=== PATIENT | female | born 1955 | race Caucasian/White ===

== ENCOUNTER 2017-07-27 15:08 | Emergency (ER) | payer SELFPAY ==
[~2017-07-27] VITALS: Ht 152.4 cm; Wt 54.0 kg
[~2017-07-27 15:08] MED LIST: ALBU8I INH; ATOR40TA49 PO; IBUP800T23 PO; PLAV75TA PO
[2017-07-27 15:09] VITALS: BP 166/129; PULSE 131; RESP 16; TEMP 99; O2SAT 91
[2017-07-27 15:32] VITALS: BP 133/60; PULSE 109; RESP 16; O2SAT 94
--- NOTE | 2017-07-27 16:16 | RADRPT ---
EXAM DATE/TIME: 07/27/2017 15:55 [facility] COMPARISON: No previous studies available for comparison. INDICATIONS : Patient tripped over curb and landed on left side. Complains of left sided rib pain. MEDICAL HISTORY : Chronic obstructive pulmonary disease. Nodules on vocal chord. SURGICAL HISTORY : None. ENCOUNTER: Initial ACUITY: 1 day PAIN SCORE: 9/10 LOCATION: Left Ribs FINDINGS: Multiple views of the left ribs were performed. There is a slightly displaced fracture of the postero lateral left third rib. No definite additional rib fractures are demonstrated. There is no significan t pneumothorax. Cardiomediastinal contours are within normal limits. CONCLUSION: 1. Minimally displaced posterolateral left third rib fracture. Kareem Mcdonald MD on July 27, 2017 at 16:10 Board Certified Radiologist. This report was verified electronically.
[2017-07-27] MEDS ORDERED: PERC5TAB12 PO (16:42)
--- NOTE | 2017-07-27 16:43 | PD ---
HPI Chief Complaint: Pain: Acute or Chronic Time Seen by Provider: 15:34 Travel History International Travel<30 days: No Contact w/Intl Traveler<30days: No Traveled to known affect area: No History of Present Illness HPI 61-year-old female patient presents to the ER today, states that she had tripped and fallen on her left side and has been having left rib pains that hurts with movement or deep breaths for the past few days. She denies hitting her head, loss of consciousness, or any other injuries. Pain is currently a 10 out 10. Modifying Factors: None Associated Signs & Symptoms: Left rib pains, injury, fall Risk Factors: None PFSH Past Medical History Asthma: Yes Diminished Hearing: No GERD: Yes ?: Not Menopausal: Yes Past Surgical History Hysterectomy: Yes (1996) Social History Alcohol Use: Yes Tobacco Use: Yes Substance Use: Yes Allergies-Medications (Allergen,Severity, Reaction): Coded Allergies: penicillin G (Unverified Allergy, Severe, UNKNOWN, 07/27/17) Reported Meds & Prescriptions Reported Meds & Active Scripts Active Plavix (Clopidogrel Bisulfate) 75 Mg Tab 75 Mg PO DAILY Lipitor 40 Mg Tab (Atorvastatin Calcium) 40 Mg Tab 40 Mg PO HS Reported Ibuprofen 800 Mg Tab 800 Mg PO BID Ventolin Hfa (Albuterol Sulfate) 8 Gm Aero 2 Puff INH Q4 * SHAKE WELL BEFORE USE * Review of Systems Except as stated in HPI: all other systems reviewed are Neg Physical Exam Narrative GENERAL: Well-developed elderly white female patient currently mild distress. Awake and oriented 3. SKIN: Focused skin assessment warm/dry. HEAD: Atraumatic. Normocephalic. EYES: Pupils equal and round. No scleral icterus. No injection or drainage. ENT: No nasal bleeding or discharge. Mucous membranes pink and moist. NECK: Trachea midline. No JVD. CARDIOVASCULAR: Regular rate and rhythm. No murmur appreciated. CHEST: Tender to palpation of the left posterior mid rib area without deformity or crepitance. No retractions or use of accessory muscles. RESPIRATORY: No accessory muscle use. Clear to auscultation. Breath sounds equal bilaterally. GASTROINTESTINAL: Abdomen soft, non-tender, nondistended. Hepatic and splenic margins not palpable. MUSCULOSKELETAL: No obvious deformities. No clubbing. No cyanosis. No edema. NEUROLOGICAL: Awake and alert. No obvious cranial nerve deficits. Motor grossly within normal limits. Normal speech. PSYCHIATRIC: Appropriate mood and affect; insight and judgment normal. Data Data Last Documented VS Vital Signs Date Time Temp Pulse Resp B/P (MAP) Pulse Ox O2 Delivery O2 Flow Rate FiO2 07/27/17 15:32 109 16 133/60 (84) 94 07/27/17 15:09 99.0 Orders Orders Ribs, Uni (W/Exp Cxr-Min 3vw) (07/27/17 15:34) Acetamin-Hydrocod 325-5 Mg ([place] 5-325 (07/27/17 16:45) MDM Medical Decision Making Medical Screen Exam Complete: Yes Emergency Medical Condition: Yes Medical Record Reviewed: Yes Differential Diagnosis Chest wall contusion versus rib fractures versus pulmonary contusions versus pneumothorax Narrative Course Chest x-ray did not show any signs of pneumothorax but does show a rib fracture on the left side which is the area where she is tender. My plan would be to give her symptomatic relief or pain and follow-up to primary care physician as needed. Return for worsening in symptoms as needed. The plan has been discussed with her and she states understanding. Diagnosis Primary Impression: Left rib fracture Med/Other Pt SpecificInfo: Prescription(s) given Scripts Oxycodone-Acetaminophen (Percocet) 5-325 mg Tab 1 TAB PO Q6H Y for PAIN, #15 TAB 0 Refills Prov: Frances Kaplan MD 07/27/17 Disposition: 01 DISCHARGE HOME Condition: Stable Frances Kaplan MD Jul 27, 2017 16:43
[2017-07-27] MEDS ORDERED: ACETAMINOPHEN/HYDROcodone 325 MG/5 MG TAB PO ONE (16:45)
[2017-07-28] MEDS ORDERED: IBUP200T47 PO (21:15)
[2017-07-28] MEDS ORDERED: PERC5TAB12 PO (22:11)
== END 2017-07-27 17:30 | disposition home or self-care (01) ==
LOC: NEPC 15:08
DX: S22.32XA Fracture of one rib, left side, initial encounter for closed fracture (principal); J45.909 Unspecified asthma, uncomplicated; K21.9 Gastro-esophageal reflux disease without esophagitis; W01.0XXA Fall on same level from slipping, tripping and stumbling without subsequent striking against object, initial encounter; Z72.0 Tobacco use; Z88.0 Allergy status to penicillin; Z79.02 Long term (current) use of antithrombotics/antiplatelets
CPT/HCPCS: 71101; 99283

== ENCOUNTER 2017-07-28 21:07 | Emergency (ER) | payer SELFPAY ==
[~2017-07-28] VITALS: Ht 152.4 cm; Wt 54.1 kg
[~2017-07-28 21:07] MED LIST changes: +PERC5TAB12 PO
[2017-07-28 21:08] VITALS: BP 144/90; PULSE 132; RESP 20; TEMP 99.4; O2SAT 95
[2017-07-28] MEDS ORDERED: IBUP200T47 PO (21:15)
[2017-07-28] MEDS ORDERED: oxyCODONE/ACETAMINOPHEN 5 MG/325 MG TAB PO ONE (21:30)
[2017-07-28] MEDS ORDERED: SODIUM CHLOR 0.9% 1000 ML INJ 1,000 ML IV ONE (21:30)
[2017-07-28 21:32] VITALS: BP 118/62; PULSE 119; RESP 20; TEMP 98.3; O2SAT 95
--- NOTE | 2017-07-28 21:58 | RADRPT ---
EXAM DATE/TIME: 07/28/2017 21:40 [facility] COMPARISON: No previous studies available for comparison. INDICATIONS : Left sided chest pain. Patient fell and fractured rib on left side two days ago. MEDICAL HISTORY : Chronic obstructive pulmonary disease. Nodules on vocal chord. SURGICAL HISTORY : None. ENCOUNTER: [facility] ACUITY: 2 days PAIN SCORE: 10/10 LOCATION: Bilateral chest FINDINGS: A single view of the chest demonstrates the lungs to be symmetrically aerated without evidence of mas s, infiltrate or effusion. The cardiomediastinal contours are unremarkable. Osseous structures are intact. CONCLUSION: 1. No acute findings. Normal basilar atelectasis. Reji Mae MD on July 28, 2017 at 21:55 Board Certified Radiologist. This report was verified electronically.
[2017-07-28 22:10] VITALS: BP 157/74; PULSE 101; RESP 18; O2SAT 99
[2017-07-28] MEDS ORDERED: PERC5TAB12 PO (22:11)
--- NOTE | 2017-07-28 22:12 | PD ---
HPI Chief Complaint: Respiratory Distress Time Seen by Provider: 21:23 Travel History International Travel<30 days: No Contact w/Intl Traveler<30days: No Traveled to known affect area: No History of Present Illness HPI 61-year-old female complains of chest pain. She states she fell while stepping onto a sidewalk curb 2 days prior and ended up fracturing the left ribs. She was diagnosed a rib fractures here and then left the ER before she obtained her Percocet prescription. She states the pain is now severe and is difficult to take a deep breath. She denies interval injury. PFSH Past Medical History Asthma: Yes COPD: Yes Diminished Hearing: No GERD: Yes Menopausal: Yes Past Surgical History Hysterectomy: Yes (1996) Social History Alcohol Use: Yes () Tobacco Use: Yes Substance Use: Yes Allergies-Medications (Allergen,Severity, Reaction): Coded Allergies: penicillin G (Unverified Allergy, Severe, UNKNOWN, 07/28/17) Reported Meds & Prescriptions Reported Meds & Active Scripts Active Percocet (Oxycodone-Acetaminophen) 5-325 mg Tab 1 Tab PO Q6H PRN Reported Ibuprofen 200 Mg Tab 250 Mg PO Q4H PRN Review of Systems Except as stated in HPI: all other systems reviewed are Neg General / Constitutional: No: Fever Cardiovascular: Positive: Chest Pain or Discomfort Respiratory: Positive: Shortness of Breath Physical Exam Narrative GENERAL: Well-nourished well-developed 61-year-old female mild to moderate distress secondary to pain SKIN: Warm and dry. HEAD: Atraumatic. Normocephalic. EYES: Pupils equal and round. No scleral icterus. No injection or drainage. ENT: No nasal bleeding or discharge. Mucous membranes pink and moist. NECK: Trachea midline. No JVD. CARDIOVASCULAR: Tachycardia with a regular rhythm. The rate about 130. RESPIRATORY: Respiratory is about 20. Lung sounds are present bilaterally. There is no flail chest. GASTROINTESTINAL: Abdomen soft, non-tender, nondistended. Hepatic and splenic margins not palpable. MUSCULOSKELETAL: Extremities without clubbing, cyanosis, or edema. No obvious deformities. NEUROLOGICAL: Awake and alert. No obvious cranial nerve deficits. Motor grossly within normal limits. Five out of 5 muscle strength in the arms and legs. Normal speech. PSYCHIATRIC: Appropriate mood and affect; insight and judgment normal. Data Data Last Documented VS Vital Signs Date Time Temp Pulse Resp B/P (MAP) Pulse Ox O2 Delivery O2 Flow Rate FiO2 07/28/17 23:06 07/28/17 22:10 101 18 99 Room Air 07/28/17 21:32 98.3 Tachycardia reviewed. Orders Orders Oxycodone-Acetamin 5-325 Mg (Percocet (07/28/17 21:30) Chest, Single Ap (07/28/17 21:29) Ecg Monitoring (07/28/17 21:29) Iv Access Insert/Monitor (07/28/17 21:29) Oximetry (07/28/17 21:29) Oxygen Administration (07/28/17 21:29) Sodium Chlor 0.9% 1000 Ml Inj (Ns 1000 M (07/28/17 21:30) Resp Incentive Spirometry (07/28/17 ) Ed Discharge Order (07/28/17 22:55) MDM Medical Decision Making Medical Screen Exam Complete: Yes Emergency Medical Condition: Yes Medical Record Reviewed: Yes Differential Diagnosis NSTEMI, unstable angina, coronary vasospasm, PE, PTX, aortic dissection, pericarditis, myocarditis, endocarditis, PNA, esophageal disease, aneurysm, musculoskeletal etiologies, anxiety, cocaine/sympathomimetic abuse Narrative Course Patient received Percocet here. The plain film reveals no pneumothorax or multiple ribs fractured in sequence. Last 24 hours Impressions Chest X-Ray 07/28/172128 Signed Impressions: Service Date/Time: Friday, July 28, 2017 21:40 - CONCLUSION: 1. No acute findings. Normal basilar atelectasis. Reji Mae MD Incentive spirometer Percocet script Diagnosis Primary Impression: Rib contusion Qualified Codes: S20.212D - Contusion of left front wall of thorax, subsequent encounter Med/Other Pt SpecificInfo: Prescription(s) given Scripts Oxycodone-Acetaminophen (Percocet) 5-325 mg Tab 1 TAB PO Q6H Y for PAIN, #15 TAB 0 Refills Prov: Abdoulaye Arcos MD 07/28/17 Disposition: 01 DISCHARGE HOME Condition: Stable Abdoulaye Arcos MD Jul 28, 2017 22:12
== END 2017-07-28 23:07 | disposition home or self-care (01) ==
LOC: NEPE 21:07
DX: S20.212D Contusion of left front wall of thorax, subsequent encounter (principal); J44.9 Chronic obstructive pulmonary disease, unspecified; W10.1XXD Fall (on)(from) sidewalk curb, subsequent encounter; Z72.0 Tobacco use
CPT/HCPCS: 71010; 94150; 99283; J7030

== ENCOUNTER 2017-10-13 17:35 | Emergency (ER) | payer SELFPAY ==
[~2017-10-13] VITALS: Ht 152.4 cm; Wt 52.5 kg
[~2017-10-13 17:35] MED LIST changes: -ALBU8I INH; -ATOR40TA49 PO; +IBUP200T47 PO; -IBUP800T23 PO; -PLAV75TA PO
[2017-10-13 17:46] VITALS: BP 128/66; PULSE 110; RESP 20; TEMP 98.3; O2SAT 97
== END 2017-10-13 19:25 | disposition left against medical advice (07) ==
LOC: NED 17:35
DX: M79.89 Other specified soft tissue disorders (principal); Z53.21 Procedure and treatment not carried out due to patient leaving prior to being seen by health care provider
CPT/HCPCS: 99281

== ENCOUNTER 2017-12-01 11:26 | Observation (INO) | payer SELFPAY ==
[2017-12-01] VITALS (9 sets, daily range): BP systolic 108–160; BP diastolic 65–99; PULSE 74–117; RESP 15–20; TEMP 97.1–98.3; O2SAT 96–99
[~2017-12-01] VITALS: Ht 152.4 cm; Wt 55.0 kg
--- NOTE | 2017-12-01 11:47 | PD ---
HPI Chief Complaint: Neuro Symptoms/ Deficits Time Seen by Provider: 11:32 Travel History International Travel<30 days: No Contact w/Intl Traveler<30days: No Traveled to known affect area: No History of Present Illness HPI This is a 62-year-old female with history of tobacco use, alcohol use, COPD, hyperlipidemia who presents for evaluation. She reports over the past few days she has had intermittent numbness in her right hand and fuzzy vision. She reports that the numbness in her right hand comes and goes and typically lasts for 5 minutes at a time. No obvious aggravating or relieving factors. She reports that the fuzzy vision has been constant and seems to be a little worse in her left eye. She denies any weakness, headache, chest pain or shortness of breath, dizziness or lightheadedness, nausea or vomiting, fevers or chills, neck pain. 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 She reports that she occasionally takes aspirin on a random basis. She occasionally uses albuterol for her COPD. She is not on any other medications and has no primary care physician. [facility], [facility] Past Medical History Asthma: Yes COPD: Yes Diminished Hearing: No GERD: Yes ?: Not Menopausal: Yes Past Surgical History Hysterectomy: Yes (1996) Social History Alcohol Use: Yes () Tobacco Use: Yes Substance Use: Yes Allergies-Medications (Allergen,Severity, Reaction): Coded Allergies: penicillin G (Verified Allergy, Intermediate, RASH, 12/01/17) Reported Meds & Prescriptions Reported Meds & Active Scripts Active Review of Systems Except as stated in HPI: all other systems reviewed are Neg Physical Exam Narrative GENERAL: Well-developed well-nourished female no acute distress. Tachycardic. SKIN: Warm and dry. HEAD: Atraumatic. Normocephalic. EYES: Pupils equal and round. No scleral icterus. No injection or drainage. ENT: No nasal bleeding or discharge. Mucous membranes pink and moist. NECK: Trachea midline. No JVD. CARDIOVASCULAR: Regular rate and rhythm. No murmur appreciated. RESPIRATORY: No accessory muscle use. Clear to auscultation. Breath sounds equal bilaterally. GASTROINTESTINAL: Abdomen soft, non-tender, nondistended. Hepatic and splenic margins not palpable. MUSCULOSKELETAL: No obvious deformities. No clubbing. No cyanosis. No edema. NEUROLOGICAL: Awake and alert. No obvious cranial nerve deficits. Motor grossly within normal limits. Normal speech. Normal matcher operator strength bilaterally. 5 out of 5 muscle strength in the extremities. Normal finger to nose, rapid alternating movements, normal heel to coello. PSYCHIATRIC: Appropriate mood and affect; insight and judgment normal. Data Data Last Documented VS Vital Signs Date Time Temp Pulse Resp B/P (MAP) Pulse Ox O2 Delivery O2 Flow Rate FiO2 12/01/17 11:36 98.2 107 18 140/99 (113) 97 Room Air 12/01/17 11:36 2.00 Orders Orders Electrocardiogram (12/01/17 11:43) Prothrombin Time / Inr (Pt) (12/01/17 11:43) Act Partial Throm Time (Ptt) (12/01/17 11:43) Complete Blood Count With Diff (12/01/17 11:43) Basic Metabolic Panel (Bmp) (12/01/17 11:43) Creatine Kinase (Cpk) (12/01/17 11:43) Drug Screen, Random Urine (12/01/17 11:43) Troponin I (12/01/17 11:43) Ct Brain W/O Iv Contrast(Rout) (12/01/17 11:43) Iv Access Insert/Monitor (12/01/17 11:43) Blood Glucose (12/01/17 11:43) Ct Cerv Spine W/O Contrast (12/01/17 ) Magnesium (Mg) (12/01/17 11:43) Admit Order (Ed Use Only) (12/01/17 13:32) Labs Laboratory Tests Test 12/01/17 11:45 White Blood Count 16.1 TH/MM3 Red Blood Count 5.19 MIL/MM3 Hemoglobin 16.7 GM/DL Hematocrit 47.7 % Mean Corpuscular Volume 92.0 FL Mean Corpuscular Hemoglobin 32.2 PG Mean Corpuscular Hemoglobin Concent 35.0 % Red Cell Distribution Width 15.2 % Platelet Count 354 TH/MM3 Mean Platelet Volume 8.0 FL Neutrophils (%) (Auto) 63.8 % Lymphocytes (%) (Auto) 29.9 % Monocytes (%) (Auto) 5.2 % Eosinophils (%) (Auto) 0.3 % Basophils (%) (Auto) 0.8 % Neutrophils # (Auto) 10.3 TH/MM3 Lymphocytes # (Auto) 4.8 TH/MM3 Monocytes # (Auto) 0.8 TH/MM3 Eosinophils # (Auto) 0.1 TH/MM3 Basophils # (Auto) 0.1 TH/MM3 CBC Comment DIFF FINAL Differential Comment Prothrombin Time 9.7 SEC Prothromb Time International Ratio 1.0 RATIO Activated Partial Thromboplast Time 26.9 SEC Urine Opiates Screen NEG Urine Barbiturates Screen NEG Urine Amphetamines Screen NEG Urine Benzodiazepines Screen NEG Urine Cocaine Screen NEG Urine Cannabinoids Screen NEG MDM Medical Decision Making Medical Screen Exam Complete: Yes Emergency Medical Condition: Yes Medical Record Reviewed: Yes Differential Diagnosis Cervical radiculopathy, thoracic outlet syndrome, herniated mucous pulposis, TIA , CVA, intracranial mass Narrative Course The patient was placed on ECG monitoring pulse oximetry. A 12-lead EKG was obtained revealing sinus rhythm. Lab work, CT imaging the brain and cervical spine will be obtained. CT the brain reveals CONCLUSION: 1. No acute hemorrhage or mass effect. 2. Focal 9 mm area of decreased attenuation in white matter of the right frontal lobe of unclear significance. This may represent an area of subacute or remote infarction. A mass lesion is less likely. This could be further evaluated with MRI imaging with without contrast. Patient's visual acuity in each eye is 20/40 while wearing her usual glasses. CBC reveals some degree of hemoconcentration with a WBC count of 16.1 and hemoglobin of 16.7. Drug screen is negative. At this point in time the plan is to admit the patient for observation. Discussed with Dr. Villafuerte who is agreeable. Diagnosis Primary Impression: Numbness of right hand Additional Impression: Blurred vision Admitting Information Admitting Physician Requests: Observation Mitch Caceres Dec 01, 2017 11:47
[2017-12-01 12:24] LABS: AUTOMATED NEUTROPHIL # 10.3 TH/MM3 (1.8-7.7); BASOPHIL # 0.1 TH/MM3 (0-0.2); BASOPHIL % 0.8 % (0.0-2.0); EOSINOPHIL # 0.1 TH/MM3 (0-0.4); EOSINOPHIL % 0.3 % (0.0-4.0); HEMATOCRIT 47.7 % (35.0-46.0); HEMOGLOBIN 16.7 GM/DL (11.6-15.3); LYMPH % 29.9 % (9.0-44.0); LYMPHOCYTE # 4.8 TH/MM3 (1.0-4.8); MEAN CORPUSCULAR HEMOGLOBIN 32.2 PG (27.0-34.0); MONO % 5.2 % (0.0-8.0); MONOCYTE # 0.8 TH/MM3 (0-0.9); NEUT % 63.8 % (16.0-70.0); PLATELET COUNT 354 TH/MM3 (150-450); RED BLOOD COUNT 5.19 MIL/MM3 (4.00-5.30); RED CELL DISTRIBUTION WIDTH 15.2 % (11.6-17.2); WHITE BLOOD COUNT 16.1 TH/MM3 (4.0-11.0)
[2017-12-01 12:44] LABS: PROTHROMBIN TIME - PATIENT 9.7 SEC (9.8-11.6)
--- NOTE | 2017-12-01 13:10 | RADRPT ---
EXAM DATE/TIME: 12/01/2017 12:56 [facility] COMPARISON: No previous studies available for comparison. INDICATIONS : Right hand numbness. RADIATION DOSE: 56.34 CTDIvol (mGy) MEDICAL HISTORY : SURGICAL HISTORY : Hysterectomy. throat ENCOUNTER: Initial ACUITY: 1 day PAIN SCALE: 4/10 LOCATION: cranial TECHNIQUE: Multiple contiguous axial images were obtained of the head. Using automated exposure control and adj ustment of the mA and/or kV according to patient size, radiation dose was kept as low as reasonably a chievable to obtain optimal diagnostic quality images. DICOM format image data is available electro nically for review and comparison. FINDINGS: CEREBRUM: There is mild to moderate atrophic change with sulcal and ventricular prominence. There is a round 9 mm area of decreased attenuation in white matter of the right frontal lobe best seen on image #13. No evidence of midline shift, mass lesion, hemorrhage or acute infarction. No extra-axial fluid collec tions are seen. POSTERIOR FOSSA: The cerebellum and brainstem are intact. The 4th ventricle is midline. The cerebellopontine angle i s unremarkable. EXTRACRANIAL: The visualized portion of the orbits is intact. SKULL: The calvaria is intact. No evidence of skull fracture. CONCLUSION: 1. No acute hemorrhage or mass effect. 2. Focal 9 mm area of decreased attenuation in white matter of the right frontal lobe of unclear sign ificance. This may represent an area of subacute or remote infarction. A mass lesion is less likely. This could be further evaluated with MRI imaging with without contrast. Lakhwinder Mitchell MD on December 01, 2017 at 13:06 Board Certified Radiologist. This report was verified electronically.
--- NOTE | 2017-12-01 13:26 | RADRPT ---
EXAM DATE/TIME: 12/01/2017 12:56 [facility] COMPARISON: No previous studies available for comparison. INDICATIONS : Right arm numbness. RADIATION DOSE: 13.91 CTDIvol (mGy) MEDICAL HISTORY : None SURGICAL HISTORY : Hysterectomy. throat. ENCOUNTER: Initial ACUITY: 1 day PAIN SCALE: 4/10 LOCATION: Right neck TECHNIQUE: Volumetric scanning of the cervical spine was performed. Multiplanar reconstructions in the sagittal, coronal and oblique axial planes were performed. Using automated exposure control and adjustment o f the mA and/or kV according to patient size, radiation dose was kept as low as reasonably achievable to obtain optimal diagnostic quality images. DICOM format image data is available electronically f or review and comparison. FINDINGS: Sagittal and coronal reconstructions show multilevel degenerative disease with loss of disc height fr om C4-5 inferiorly. Minimal grade 1 anterolisthesis of C2 on 3 and C3 on 4 probably due to facet dege neration. Vertebral body heights are maintained without fracture. Partially calcified disc at C5-6 en croaches on the spinal canal and may result in some degree of spinal stenosis. Spinal canal appears t o be adequate at all remaining levels, however. C2-C3: Right-sided facet hypertrophy. Spinal canal and neural foramina remain adequate C3-C4: Bilateral facet hypertrophy. Spinal canal and neural foramina are adequate C4-C5: Uncovertebral ridging most prominent left posterolateral encroaches on the left neural foramina and m ay compromise the left C5 nerve root. Spinal canal and right neural foramina are adequate C5-C6: Uncovertebral ridging with a calcified disc measuring 3 mm in depth encroaches on the intrapleural sp gladys. No obvious cord compromise. Both neural foramina are adequate C6-C7: Uncovertebral ridging. Spinal canal and neural foramina are patent C7-T1: The bony spinal canal is normal in size. No evidence of disc bulge or herniation. The neural forami na are bilaterally patent. CONCLUSION: 1. No fracture. Minimal grade 1 anterolisthesis C2 on 3 and C3 on 4 probably due to facet degeneratio n. 2. Multilevel degenerative disc disease with loss of disc height most prominent from C4-5 inferiorly. Partially calcified 3 mm disc at C5-6 encroaches on the intervertebral space and results in mild spi nal stenosis but no cord compromise. Spinal canal is otherwise throughout. 3. Some encroachment on the left neural foramen at C4-5 due to mild vertebral ridging. Despite multil evel facet hypertrophy, neural foramina are adequate at all remaining levels. Brandon Llanos MD on December 01, 2017 at 13:12 Board Certified Radiologist. This report was verified electronically.
[2017-12-01] MEDS ORDERED: GADODIAMIDE PF 287 MG/ML 5 ML VIAL (for RAD MRI) IVCONTRAST ONE (13:35)
--- NOTE | 2017-12-01 14:12 | HHI.HP ---
HPI Service Family Medicine Primary Care Physician No Primary Care Physician Admission Diagnosis Blurred vision, right hand numbness Diagnoses: International Travel<30 Days: No Contact w/Intl Traveler<30days: No Known Affected Area: No History of Present Illness 62 y/o F, presents with right hand numbness and vision change today. She states she hasn't been feeling good for the last couple days but the numbness started this morning. She had felt out of sorts like she was coming down with a cold or something. She felt more fatigued and congested. Right when she woke up this morning she noticed her vision didn't look right. She tried to have a cup of coffee to see if it would get better, but then she realized she had to go the ED. Since she got to the ED she thinks her vision has improved a little bit. The right hand numbness has concerned her more than the vision, this also was noticeable right when she woke up. Her right hand numbness has been coming and going over the day. She denies any hx of carpal tunnel. Pt denies any hx of stroke. She is walking normally but feels "off balance". She has been using her arthritis cane to walk today. Denies any arm or hand weakness. She has had a headache over the last few days, 4-5/10 pain. She took 3 aspirin for the headache along with caffeine and that helped. She does not have a headache right now. She does not take her BP regularly. Review of Systems Constitutional: DENIES: Fever, Weight loss Endocrine: COMPLAINS OF: Heat/cold intolerance (menopausal), DENIES: Polyuria Respiratory: COMPLAINS OF: Cough, Sputum production (normal, smoker), DENIES: Wheezing Cardiovascular: DENIES: Syncope, Lower Extremity Edema Gastrointestinal: COMPLAINS OF: Diarrhea (x 3-4 days, from icelandic takeout?), DENIES: Constipation, Nausea, Vomiting Genitourinary: DENIES: Urinary frequency Integumentary: DENIES: Rash Neurologic: DENIES: Seizures Psychiatric: COMPLAINS OF: Confusion (gradual age "forgetfulness"), DENIES: Mood changes, Depression Past Family Social History Past Medical History COPD Asthma Arthritis in R knee laryngeal polyps Does not have a PCP currently, has not seen one for a long time Past Surgical History hysterectomy, partial foot surgeries vocal cord surgery x 2 for polyps Allergies: Coded Allergies: penicillin G (Verified Allergy, Intermediate, RASH, 12/01/17) Family History Family hx of DM Social History live here in [facility] with roommates, friends smoke: 1ppd x lifetime drink: 2 beers every 2 days, never had a drinking problem drugs: no drugs Physical Exam Vital Signs Vital Signs Date Time Temp Pulse Resp B/P (MAP) Pulse Ox O2 Delivery O2 Flow Rate FiO2 12/01/17 13:35 98.2 90 15 137/65 (89) 99 Room Air 12/01/17 11:36 98.2 107 18 140/99 (113) 97 Room Air 12/01/17 11:36 107 18 93 Nasal Cannula 2.00 12/01/17 11:28 97.1 117 15 160/72 (101) 98 Physical Exam GENERAL: This is a well-nourished, well-developed patient, in no apparent distress. SKIN: No rashes, ecchymoses or lesions. Cool and dry. HEAD: Atraumatic. Normocephalic. No temporal or scalp tenderness. EYES: Pupils equal round and reactive. Extraocular motions intact. No scleral icterus. Eyes are injected and erythematous, apparently this is normal for patient. wearing glasses vision is 20/40 equal bilaterally ENT: Nose without bleeding, purulent drainage or septal hematoma. Throat without erythema, tonsillar hypertrophy or exudate. Uvula midline. Airway patent. NECK: Trachea midline. No JVD or lymphadenopathy. Supple, nontender, no meningeal signs. CARDIOVASCULAR: Regular rate and rhythm without murmurs, gallops, or rubs. RESPIRATORY: Clear to auscultation. Breath sounds equal bilaterally. Mild wheezing in middle and lower lobes. No coughing. GASTROINTESTINAL: Abdomen soft, non-tender, nondistended. No hepato-splenomegaly , or palpable masses. No guarding. MUSCULOSKELETAL: Extremities without clubbing, cyanosis, or edema. No joint tenderness, effusion, or edema noted. No calf tenderness. Negative Homans sign bilaterally. NEUROLOGICAL: Awake and alert. Cranial nerves II through XII intact. Motor and sensory grossly within normal limits. Five out of 5 muscle strength in all muscle groups. Normal speech. Laboratory Laboratory Tests Test 12/01/17 11:45 12/01/17 13:40 White Blood Count 16.1 Red Blood Count 5.19 Hemoglobin 16.7 Hematocrit 47.7 Mean Corpuscular Volume 92.0 Mean Corpuscular Hemoglobin 32.2 Mean Corpuscular Hemoglobin Concent 35.0 Red Cell Distribution Width 15.2 Platelet Count 354 Mean Platelet Volume 8.0 Neutrophils (%) (Auto) 63.8 Lymphocytes (%) (Auto) 29.9 Monocytes (%) (Auto) 5.2 Eosinophils (%) (Auto) 0.3 Basophils (%) (Auto) 0.8 Neutrophils # (Auto) 10.3 Lymphocytes # (Auto) 4.8 Monocytes # (Auto) 0.8 Eosinophils # (Auto) 0.1 Basophils # (Auto) 0.1 CBC Comment DIFF FINAL Differential Comment Prothrombin Time 9.7 Prothromb Time International Ratio 1.0 Activated Partial Thromboplast Time 26.9 Urine Opiates Screen NEG Urine Barbiturates Screen NEG Urine Amphetamines Screen NEG Urine Benzodiazepines Screen NEG Urine Cocaine Screen NEG Urine Cannabinoids Screen NEG Result Diagram: 12/01/17 1145 Septic Shock Reassessment Septic shock perfusion: reassessment completed Caprini VTE Risk Assessment Caprini VTE Risk Assessment: No/Low Risk (score <= 1) Caprini Risk Assessment Model Point Value = 1 Point Value = 2 Point Value = 3 Point Value = 5 Age 41-60 Minor surgery BMI > 25 kg/m2 Swollen legs Varicose veins or History of unexplained or recurrent spontaneous Oral contraceptives or hormone replacement Sepsis (< 1 month) Serious lung disease, including pneumonia (< 1 month) Abnormal pulmonary function Acute myocardial infarction Congestive heart failure (< 1 month) History of inflammatory bowel disease Medical patient at bed rest Age 61-74 Arthroscopic surgery Major open surgery (> 45 min) Laparoscopic surgery (> 45 min) Malignancy Confined to bed (> 72 hours) Immobilizing plaster cast Central venous access Age >= 75 History of VTE Family history of VTE Factor V Leiden Prothrombin [id number] Lupus anticoagulant Anticardiolipin antibodies Elevated serum homocysteine Heparin-induced thrombocytopenia Other congenital or acquired thrombophilia Stroke (< 1 month) Elective arthroplasty Hip, pelvis, or leg fracture Acute spinal cord injury (< 1 month) Prophylaxis Regimen Total Risk Factor Score Risk Level Prophylaxis Regimen 0-1 Low Early ambulation 2 Moderate Order ONE of the following: *Sequential Compression Device (SCD) *Heparin 5000 units SQ BID 3-4 Higher Order ONE of the following medications: *Heparin 5000 units SQ TID *Enoxaparin/Lovenox 40 mg SQ daily (WT < 150 kg, CrCl > 30 mL/min) *Enoxaparin/Lovenox 30 mg SQ daily (WT < 150 kg, CrCl > 10-29 mL/min) *Enoxaparin/Lovenox 30 mg SQ BID (WT < 150 kg, CrCl > 30 mL/min) AND/OR *Sequential Compression Device (SCD) 5 or more Highest Order ONE of the following medications: *Heparin 5000 units SQ TID (Preferred with Epidurals) *Enoxaparin/Lovenox 40 mg SQ daily (WT < 150 kg, CrCl > 30 mL/min) *Enoxaparin/Lovenox 30 mg SQ daily (WT < 150 kg, CrCl > 10-29 mL/min) *Enoxaparin/Lovenox 30 mg SQ BID (WT < 150 kg, CrCl > 30 mL/min) AND *Sequential Compression Device (SCD) Assessment and Plan Assessment and Plan 62-year-old female presents with symptoms consistent with TIA since awakening this morning. Her symptoms have been alleviating of the day. Code Status Full code Problem List: (1) Blurry vision, bilateral ICD Codes: H53.8 - Other visual disturbances Status: Acute Plan: Acute bilateral vision loss, improving over day BP normal, carotid normal History of headache over last few days, no headache now, possible migraine aura Less Likely temporal arteritis - no tenderness to palpation, no current headache , f/u ESR, CRP R/O TIA as below (2) Numbness of right hand ICD Codes: R20.0 - Anesthesia of skin Status: Acute Plan: Paroxysmal over day today no hx of carpal tunnel, 1st episode Nerve compression radiculopathy versus TIA Follow-up as outpatient with cervical MRI Cervical spine CT: Degenerative disc disease at C5-C6, encroaching on intervertebral space, mild spinal stenosis but no cord compromise. - Imaging discussed with radiology, it is possible that stenosis is causing nerve impingement and radiculopathy (3) TIA (transient ischemic attack) ICD Codes: G45.9 - Transient cerebral ischemic attack, unspecified Status: Acute Plan: paroxysmal right arm numbness since AM, blurry vision since AM, both improving Transient symptoms consistent with TIA Bedrest Head of bed flat for 12 hours Neurochecks every 4 while patient is awake Will allow for permissive hypertension of 200/100 Heart healthy diet Normal saline at 75 mL/h Initial glucose normal Start aspirin 325 daily Start Lovenox 40 daily Start atorvastatin 40 at bedtime Follow-up ACS workup Follow-up lipid profile and hemoglobin A1c Follow-up LFTs Follow-up echo Consult PT, OT Consult neurology Head CT: No hemorrhage. Focal 9 mm area of decreased attenuation in white matter of right frontal lobe, unclear significance. May be subacute or remote infarction. Mass lesion is less likely. Further evaluate with MRI Brain MRI: Chronic white matter ischemic changes. No mass or abnormal enhancement Neck MRA: 50% stenosis of left subclavian. Right carotid system is patent. Left vertebral may be occluded proximally (similar to CT neck in 2015) Head MRA: Anatomical variant of the [place]. Right vertebral dominant. No aneurysms. (4) SIRS (systemic inflammatory response syndrome) ICD Codes: R65.10 - Systemic inflammatory response syndrome (SIRS) of non- infectious origin without acute organ dysfunction Status: Acute Plan: Patient met SIRS criteria on admission with tachycardia and leukocytosis Heart rate 117, WBC 16 Follow-up UA, urine culture Follow-up vital signs Chest x-ray: Minimal atelectasis in right base. Lungs otherwise clear. (5) COPD (chronic obstructive pulmonary disease) ICD Codes: J44.9 - Chronic obstructive pulmonary disease, unspecified Status: Chronic Plan: Albuterol as needed (6) FEN/PPX Status: Acute Plan: Fluids: Normal saline at 75 mL/h Electrolytes: BMP normal, follow-up in a.m. Nutrition: Heart healthy diet GI prophylaxis: Not indicated DVT prophylaxis: Lovenox 40 daily Lilian Tafoya MD R2 Dec 01, 2017 14:12
[2017-12-01 14:27] LABS: TROPONIN I LESS THAN 0.02 NG/ML (0.02-0.05)
[2017-12-01 14:28] LABS: BLOOD UREA NITROGEN 7 MG/DL (7-18); CALCIUM 8.8 MG/DL (8.5-10.1); CHLORIDE 108 MEQ/L (98-107); CREATININE 0.72 MG/DL (0.50-1.00); GLOMERULAR FILTRATION RATE 82 ML/MIN (>89); GLUCOSE,RANDOM 75 MG/DL (74-106); MAGNESIUM 2.4 MG/DL (1.5-2.5); SODIUM (NA) 141 MEQ/L (136-145)
[2017-12-01] MEDS ORDERED: SENNOSIDES 8.6 MG TAB PO PRN (14:45)
[2017-12-01] MEDS ORDERED: ONDANSETRON HCL 4 MG/2 ML VIAL IVP PRN (14:45)
[2017-12-01] MEDS ORDERED: MAGNESIUM HYDROXIDE SUSP 30 ML CUP PO PRN (14:45)
[2017-12-01] MEDS ORDERED: ACETAMINOPHEN 325 MG TAB PO PRN (14:45)
[2017-12-01] MEDS ORDERED: SODIUM CHLORIDE 0.9% FLUSH 10 ML FLUSH IV FLUSH PRN (14:45)
[2017-12-01] MEDS ORDERED: TEMAZEPAM 15 MG CAP PO PRN (14:45)
[2017-12-01] MEDS ORDERED: BISACODYL 10 MG SUPP RECTAL PRN (14:45)
[2017-12-01] MEDS ORDERED: LACTULOSE SYRUP 20 GM/30 ML CUP PO PRN (14:45)
[2017-12-01] MEDS ORDERED: NALOXONE HCL 0.4 MG/ML AMP IV PUSH PRN (14:45)
[2017-12-01] MEDS ORDERED: RESP: ALBUTEROL 2.5 MG/3 ML NEB (PRN) INH (15:00)
[2017-12-01] MEDS ORDERED: RESP: IPRATROPIUM 0.5 MG/2.5 ML NEB INH PRN (15:00)
[2017-12-01] MEDS: SODIUM CHLOR 0.45% 1000 ML INJ 1,000 ML IV SCH (15:33)
[2017-12-01] MEDS: ASPIRIN 325 MG TAB PO SCH (15:34)
[2017-12-01] MEDS: ENOXAPARIN SODIUM 40 MG/0.4 ML SYRINGE SQ SCH (15:34)
--- NOTE | 2017-12-01 16:19 | RADRPT ---
EXAM DATE/TIME: 12/01/2017 15:11 [facility] COMPARISON: No previous studies available for comparison. INDICATIONS : Cough. Congestion. MEDICAL HISTORY : None. SURGICAL HISTORY : None. ENCOUNTER: Initial ACUITY: 2 days PAIN SCORE: 6/10 LOCATION: Bilateral chest FINDINGS: PA and lateral views of the chest demonstrate the lungs to be symmetrically aerated without evidence of mass, infiltrate or effusion. Minimal linear atelectatic changes in the right base. The cardiomed iastinal contours are unremarkable. Osseous structures are intact. CONCLUSION: Minimal linear atelectatic changes in the right base. Lungs are otherwise clear. Brandon Llanos MD on December 01, 2017 at 16:17 Board Certified Radiologist. This report was verified electronically.
--- NOTE | 2017-12-01 16:34 | RADRPT ---
EXAM DATE/TIME: 12/01/2017 15:43 [facility] COMPARISON: No previous studies available for comparison. INDICATIONS : Right sided weakness. CONTRAST: 14 cc Omniscan (gadodiamide) IV MEDICAL HISTORY : None. SURGICAL HISTORY : Hysterectomy. Vocal cord, foot surgeries. ENCOUNTER: Initial ACUITY: 1 day PAIN SCORE: 0/10 LOCATION: cranial TECHNIQUE: Multiplanar, multisequence MRI of the brain was performed both prior to and following the administrat ion of paramagnetic contrast. FINDINGS: There are mild changes of chronic ischemic demyelinization in the periventricular white matter. No re cent infarct. Lesion in the right frontal lobe seen on CT likely represents chronic white matter osp[place]. No abnormal enhancing lesions postcontrast. No hydrocephalus. No abnormal extra-axial fluid collections. CONCLUSION: 1. Chronic white matter ischemic changes. No recent infarct. No mass or abnormal enhancement. Reji Mae MD on December 01, 2017 at 16:23 Board Certified Radiologist. This report was verified electronically.
--- NOTE | 2017-12-01 16:38 | RADRPT ---
EXAM DATE/TIME: 12/01/2017 15:43 [facility] COMPARISON: MRA BRAIN W/O CONTRAST, March 19, 2015, 7:41. INDICATIONS : Right sided weakness. MEDICAL HISTORY : None. SURGICAL HISTORY : Hysterectomy. Vocal cord surgery, foot surgeries. ENCOUNTER: Initial ACUITY: 1 day PAIN SCORE: 0/10 LOCATION: cranial Please note a normal MRA of the brain does not entirely exclude the possibility of a small aneurysm, nor the possibility of distal intracranial vessel disease. TECHNIQUE: 3D time of flight MRA was performed. Source images, multiplanar STS MIP, and 3D volume MIP reconstru ctions were reviewed. FINDINGS: There is excellent visualization of the major intracranial arteries out to the second-order branch ve ssels. There is no evidence for aneurysm, vessel truncation or stenosis, and no evidence for vascula r malformation. Air contrast of the [place] with very diminutive left posterior communicating artery. 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 Anterior commuting artery and the right posterior c ommunicating artery are patent. Patient is right vertebral dominant. CONCLUSION: 1. Stable examination with anatomic variant of the [place] as above. Patient is right verteb ral dominant. 2. Intracranial vessels are otherwise patent without aneurysmal disease. Brandon Llanos MD on December 01, 2017 at 16:33 Board Certified Radiologist. This report was verified electronically.
--- NOTE | 2017-12-01 17:31 | RADRPT ---
EXAM DATE/TIME: 12/01/2017 15:43 [facility] COMPARISON: No previous studies available for comparison. INDICATIONS : Right side weakness. CONTRAST: 14 cc Omniscan (gadodiamide) IV MEDICAL HISTORY : None. SURGICAL HISTORY : Hysterectomy. Vocal cord surgery, foot surgeries. ENCOUNTER: Initial ACUITY: 1 day PAIN SCORE: 0/10 LOCATION: neck Percent stenosis is calculated using the diameter of the stenotic region over the diameter of the nor mal distal internal carotid artery. TECHNIQUE: Bolus infused MRA of the extracranial circulation was performed using a neurovascular coil. Post pro cessing was performed including rotating subvolume maximum intensity projections of each carotid milton ry, rotating full volume maximum intensity projections of both carotid arteries, sagittal and coronal sliding thin slab reformations of each carotid artery, and left oblique sliding thin slab reformatio n through the aortic arch to include the origin of the arch branch vessels. FINDINGS: AORTIC ARCH: Bovine configuration of the aortic arch. 40-50% nonostial stenosis of the proximal left subclavian. A h vessels are otherwise patent RIGHT CAROTID: The common carotid artery is intact. The carotid bulb has a normal configuration without ulceration or narrowing. The internal carotid artery lumen is smooth without stenosis. The external carotid ar tonya is intact. LEFT CAROTID: The common carotid artery is intact. The carotid bulb has a normal configuration without ulceration or narrowing. Minimal stenosis in the proximal left internal which does not appear to be hemodynamica lly significant. The external carotid artery is intact. VERTEBRALS: Patient is right vertebral dominant. Left vertebral may be occluded proximally. CONCLUSION: 1. Bovine arch. 40-50% proximal stenosis of the left subclavian. Arch vessels are otherwise patent. 2. Mild, 20% proximal stenosis of the left internal would not be considered significant. Right caroti d system is patent throughout. 3. Patient is right vertebral dominant. The left vertebral is quite diminutive and may be occluded pr oximally Brandon Llanos MD on December 01, 2017 at 17:23 Board Certified Radiologist. This report was verified electronically.
[2017-12-01] MEDS: SODIUM CHLORIDE 0.9% FLUSH 10 ML FLUSH IV FLUSH SCH (21:55)
[2017-12-02] VITALS (7 sets, daily range): BP systolic 144–186; BP diastolic 70–85; PULSE 68–87; RESP 18–20; TEMP 97.7–98.2; O2SAT 96–98
[2017-12-02] MEDS: SODIUM CHLOR 0.45% 1000 ML INJ 1,000 ML IV SCH ×2 (03:29→16:57)
[2017-12-02 08:35] LABS: BASOPHIL # 0.1 TH/MM3 (0-0.2); BASOPHIL % 0.8 % (0.0-2.0); EOSINOPHIL # 0.2 TH/MM3 (0-0.4); EOSINOPHIL % 3.1 % (0.0-4.0); HEMATOCRIT 46.3 % (35.0-46.0); HEMOGLOBIN 15.8 GM/DL (11.6-15.3); MEAN CELL VOLUME 92.2 FL (80.0-100.0); MEAN CORPUSCULAR HEMOGLOBIN 31.4 PG (27.0-34.0); MEAN PLATELET VOLUME 7.8 FL (7.0-11.0); MONO % 7.8 % (0.0-8.0); MONOCYTE # 0.6 TH/MM3 (0-0.9); NEUT % 50.3 % (16.0-70.0); PLATELET COUNT 288 TH/MM3 (150-450); RED BLOOD COUNT 5.03 MIL/MM3 (4.00-5.30); RED CELL DISTRIBUTION WIDTH 14.9 % (11.6-17.2)
[2017-12-02 08:58] LABS: ALBUMIN 3.3 GM/DL (3.4-5.0); AST (GOT) 14 U/L (15-37); BLOOD UREA NITROGEN 12 MG/DL (7-18); CALCIUM 8.9 MG/DL (8.5-10.1); CHLORIDE 106 MEQ/L (98-107); CREATININE 0.66 MG/DL (0.50-1.00); GLOMERULAR FILTRATION RATE 91 ML/MIN (>89); GLUCOSE,RANDOM 79 MG/DL (74-106); SODIUM (NA) 139 MEQ/L (136-145)
[2017-12-02 08:59] LABS: ALT (GPT) 19 U/L (10-53); CHOLESTEROL 231 MG/DL (120-200); TRIGLYCERIDES 216 MG/DL (42-150)
[2017-12-02 09:02] LABS: ALKALINE PHOSPHATASE 71 U/L (45-117); CHOLESTEROL/ HDL RATIO 3.44 RATIO; HDL CHOLESTEROL 67.1 MG/DL (40.0-60.0); LDL CHOLESTEROL 121 MG/DL (0-99); TOTAL BILIRUBIN ADULT 0.9 MG/DL (0.2-1.0); TOTAL PROTEIN 6.7 GM/DL (6.4-8.2)
[2017-12-02] MEDS: ATORVASTATIN 40 MG TAB PO SCH (09:16)
[2017-12-02] MEDS: NICOTINE 21 MG/24 HR PATCH TD SCH (09:16)
[2017-12-02] MEDS: ASPIRIN 325 MG TAB PO SCH (09:16)
[2017-12-02] MEDS: SODIUM CHLORIDE 0.9% FLUSH 10 ML FLUSH IV FLUSH SCH ×2 (09:16→22:57)
--- NOTE | 2017-12-02 11:40 | HHI.FPPN ---
Subjective Remarks Patient feeling much better today. She denies any progressive or worsening blurry vision. She still is periodically getting some numbness and tingling in her right hand. This lasted for several minutes. She shakes her hand, and this appears to help it minimally. She denies any new numbness or tingling throughout her body. She denies any dysarthria. She denies any dysphagia. She denies any difficulty with swallowing. She denies any chest pain or shortness of breath. She is asking when she can go home. (Brady Soriano MD, R3) Objective Vitals Vital Signs Date Time Temp Pulse Resp B/P (MAP) Pulse Ox O2 Delivery O2 Flow Rate FiO2 12/02/17 08:22 97.9 85 20 168/74 (105) 96 12/02/17 08:10 68 12/02/17 07:50 98 21 12/02/17 05:04 97.7 87 18 144/70 (94) 98 12/02/17 00:00 98.0 69 20 156/85 (108) 96 12/01/17 20:00 98.0 79 20 108/66 (80) 97 12/01/17 18:30 98.1 74 16 157/68 (97) 96 12/01/17 17:22 98.3 79 16 139/66 (90) 99 Nasal Cannula 2.00 12/01/17 17:12 98.3 79 15 139/66 (90) 99 Nasal Cannula 2.00 12/01/17 16:10 99 Nasal Cannula 2.00 12/01/17 15:16 98.2 86 17 137/65 (89) 99 Nasal Cannula 12/01/17 13:35 98.2 90 15 137/65 (89) 99 Room Air 12/01/17 11:36 98.2 107 18 140/99 (113) 97 Room Air 12/01/17 11:36 107 18 93 Nasal Cannula 2.00 I/O 12/01/17 12/01/17 12/01/17 12/02/17 12/02/17 12/02/17 07:00 15:00 23:00 07:00 15:00 23:00 Intake Total 300 ml 240 ml Balance 300 ml 240 ml Intake Oral 300 ml 240 ml # Voids 1 1 3 # Bowel Movements 0 (Brady Soriano MD, R3) Result Diagram: 12/02/17 0630 12/02/17 0630 Imaging Last 72 hours Impressions Neck Magnetic Resonance Angiography 12/01/17 1446 Signed Impressions: Service Date/Time: Friday, December 01, 2017 15:43 - CONCLUSION: 1. Bovine arch. 40-50%% proximal stenosis of the left subclavian. Arch vessels are otherwise patent. 2. Mild, 20%% proximal stenosis of the left internal would not be considered significant. Right carotid system is patent throughout. 3. Patient is right vertebral dominant. The left vertebral is quite diminutive and may be occluded proximally Brandon Llanos MD Chest X-Ray 12/01/17 1438 Signed Impressions: Service Date/Time: Friday, December 01, 2017 15:11 - CONCLUSION: Minimal linear atelectatic changes in the right base. Lungs are otherwise clear. Brandon Llanos MD Head CT 12/01/17 1143 Signed Impressions: Service Date/Time: Friday, December 01, 2017 12:56 - CONCLUSION: 1. No acute hemorrhage or mass effect. 2. Focal 9 mm area of decreased attenuation in white matter of the right frontal lobe of unclear significance. This may represent an area of subacute or remote infarction. A mass lesion is less likely. This could be further evaluated with MRI imaging with without contrast. Lakhwinder Mitchell MD Head Magnetic Resonance Angiography 12/01/17 0000 Signed Impressions: Service Date/Time: Friday, December 01, 2017 15:43 - CONCLUSION: 1. Stable examination with anatomic variant of the [place] of [place] as above. Patient is right vertebral dominant. 2. Intracranial vessels are otherwise patent without aneurysmal disease. Brandon Llanos MD Cervical Spine CT 12/01/17 0000 Signed Impressions: Service Date/Time: Friday, December 01, 2017 12:56 - CONCLUSION: 1. No fracture. Minimal grade 1 anterolisthesis C2 on 3 and C3 on 4 probably due to facet degeneration. 2. Multilevel degenerative disc disease with loss of disc height most prominent from C4-5 inferiorly. Partially calcified 3 mm disc at C5-6 encroaches on the intervertebral space and results in mild spinal stenosis but no cord compromise. Spinal canal is otherwise throughout. 3. Some encroachment on the left neural foramen at C4-5 due to mild vertebral ridging. Despite multilevel facet hypertrophy, neural foramina are adequate at all remaining levels. Brandon Llanos MD Brain MRI 12/01/17 0000 Signed Impressions: Service Date/Time: Friday, December 01, 2017 15:43 - CONCLUSION: 1. Chronic white matter ischemic changes. No recent infarct. No mass or abnormal enhancement. Reji Mae MD Objective Remarks GENERAL: Well-nourished, well-developed patient. No acute distress. SKIN: Warm and dry. No rash. EYES: No scleral icterus. No injection or drainage. PERRLA. EOMI. HENT: Normocephalic. Atraumatic. MMM. NECK: No visible JVD or lymphadenopathy. CARDIOVASCULAR: Warm and well perfused. RESPIRATORY: Normal respiratory effort. GASTROINTESTINAL: Abdomen nondistended. MUSCULOSKELETAL: Strength grossly WNL. BACK: Without obvious deformity. NEURO/PSYCH: Neuro exam completed within normal limits. Cranial nerves intact. Sensation and strength grossly intact throughout. Cerebellar testing within normal limits. (Brady Soriano MD, R3) A/P Assessment and Plan 62-year-old female presents with nonspecific neurologic symptoms. Found to likely have a TIA versus atypical migraine versus cervical neck radiculopathy versus carpal tunnel. She has had no progression of her blurry vision or right hand numbness. (Brady Soriano MD, R3) Attending Attestation Pt. seen, examined and discussed with the medicine team, Drs. Mccain, Bo, Shantanu and Zara. Pt. essentially asymptomatic the a.m., except for occasional brief episodes of numbness "like pins and needles" on the dorsum of her right hand. She at times get this in the night and flicks her hand to get relief. Blurry vision essentially gone. Has smoked very heavily for many years, unsuccessful in efforts to quit. Overnight only symptom was hand numbness. 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 I agree with exam findings and noted with the exception of perhaps very mild pronator drift on the right. Very poor dentition, upper denture. No exacerbation fo hand numbness with C-spine compression maneuvers. Await echocardiogram. Advised strongly to quit smoking. Also advised to obtain cock-up splint for right hand/wrist as OP. Await neuro evaluation. (Jennifer Grimm MD) Problem List: (1) Blurry vision, bilateral ICD Codes: H53.8 - Other visual disturbances Status: Acute Plan: Acute bilateral vision loss, improving over day BP normal, carotid normal History of headache over last few days, no headache now, possible migraine aura Less Likely temporal arteritis given a normal ESR. We will follow up neurology's recommendations. We appreciate their assistance in management. (2) Numbness of right hand ICD Codes: R20.0 - Anesthesia of skin Status: Acute Plan: Paroxysmal over day today no hx of carpal tunnel, 1st episode Nerve compression radiculopathy versus TIA Follow-up as outpatient with cervical MRI Cervical spine CT: Degenerative disc disease at C5-C6, encroaching on intervertebral space, mild spinal stenosis but no cord compromise. - Imaging discussed with radiology, it is possible that stenosis is causing nerve impingement and radiculopathy (3) TIA (transient ischemic attack) ICD Codes: G45.9 - Transient cerebral ischemic attack, unspecified Status: Acute Plan: paroxysmal right arm numbness since AM, blurry vision since AM, both improving Transient symptoms consistent with TIA versus cervical radiculopathy versus carpal tunnel. Bedrest Head of bed flat for 12 hours Neurochecks every 4 while patient is awake Will allow for permissive hypertension of 200/100 Heart healthy diet Normal saline at 75 mL/h Initial glucose normal Start aspirin 325 daily Start Lovenox 40 daily Start atorvastatin 40 at bedtime ACS workup was within normal limits including troponins 3. Lipid profile showed an elevated LDL of 121. Continue statin as above. A1c pending. LFTs within normal limits. Follow-up echo Consult PT, OT Consult neurology Head CT: No hemorrhage. Focal 9 mm area of decreased attenuation in white matter of right frontal lobe, unclear significance. May be subacute or remote infarction. Mass lesion is less likely. Brain MRI: Chronic white matter ischemic changes. No mass or abnormal enhancement Neck MRA: 50% stenosis of left subclavian. Right carotid system is patent. Left vertebral may be occluded proximally (similar to CT neck in 2015) Head MRA: Anatomical variant of the [place] of [place]. Right vertebral dominant. No aneurysms. (4) SIRS (systemic inflammatory response syndrome) ICD Codes: R65.10 - Systemic inflammatory response syndrome (SIRS) of non- infectious origin without acute organ dysfunction Status: Acute Plan: Resolved. We will follow-up urine analysis and cultures. Chest x-rays just showed minimal atelectasis in the right lung base. (5) COPD (chronic obstructive pulmonary disease) ICD Codes: J44.9 - Chronic obstructive pulmonary disease, unspecified Status: Chronic Plan: Albuterol as needed (6) FEN/PPX Status: Acute Plan: Fluids: Normal saline at 75 mL/h Electrolytes: BMP normal, follow-up in a.m. Nutrition: Heart healthy diet GI prophylaxis: Not indicated DVT prophylaxis: Lovenox 40 daily Seen and discussed with Dr. Jennifer Grimm. (Brady Soriano MD, R3) Brady Soriano MD, R3 Dec 02, 2017 11:40 Jennifer Grimm MD Dec 02, 2017 13:28
[2017-12-02 12:44] LABS: BILIRUBIN, URINE NEG (NEG); BLOOD, URINE NEG (NEG); GLUCOSE,URINE NEG (NEG); KETONE, URINE NEG (NEG); MUCUS URINE FEW /lpf (OCC); NITRITE,URINE NEG (NEG); PH, URINE 6.5 (5.0-8.5); SQUAMOUS EPITHELIAL CELL URINE 1 /hpf (0-5); URINE COLOR LIGHT-YELLOW (YELLW/STRAW); URINE LEUKOCYTE ESTERASE NEG (NEG)
--- NOTE | 2017-12-02 13:44 | MB ---
cc: Martell Villasenor MD DATE: 12/02/2017 HISTORY OF PRESENT ILLNESS: She is a 62-year-old woman seen in neurological consultation in regards to recurrent right hand numbness. She also had some visual symptoms describing as difficulty focusing. She is unable to give me more details on her vision. She had recurrence of her right hand numbness in many occasions. Today, this seems to be less severe. She admits a history of COPD and takes Albuterol and Tylenol only. She does not take any aspirin. She has had no problems with speech or language, no difficulty walking. No headaches. NEUROLOGICAL EXAMINATION: The neurological exam showed normal mentation except for mild anxiety. Ocular movements and visual morales full. Pupils equal and reactive. I could not see the disks well. There is no facial weakness. She was ambulating well. She has good strength of the upper and lower extremities. No thenar muscle wasting. Sensory exam is normal. Reflexes were 1+ including the ankles and plantar responses were flexor. LABORATORY DATA: She has had a number of studies. MRI brain negative. MRA head and neck essentially remarkable for left vertebral arterial occlusion versus diminutive artery. Otherwise, no significant findings. ASSESSMENT AND PLAN: Right hand numbness, recurrent, uncertain etiology. Imaging studies of the brain and cerebrovascular as discussed above. There is some left vertebral occlusion versus diminutive artery, apparently similar to a CT neck in 2015. Though described negative for headaches, in retrospect, she admits to some headaches recently, but I do not think this is a migraine syndrome. She may have carpal tunnel or cervical radiculopathy to explain this recurrent right hand numbness without any other associated neurological symptoms. I do not have a clear explanation for her visual complaints and to me she described that she had difficulty focusing. Anyway, she is instructed to take aspirin as she does not take aspirin at all and she is also restarted on a statin. It appears that she does not have any continuity of medical care and this is emphasized to the patient. Her sedimentation rate was 2. Her LDL was 121 and in this situation would recommend it to be brought below 70. Monitor her and outpatient neurological followup. Possibly discharge tomorrow if she remains stable. May need MRI cervical spine and EMG right upper extremity. Thank you for asking us to assist in her care. Martell Villasenor MD OFC/TL , 01:08 PM , 01:43 PM
[2017-12-02] MEDS: ENOXAPARIN SODIUM 40 MG/0.4 ML SYRINGE SQ SCH (17:01)
[2017-12-02] MEDS ORDERED: REMOVE OLD NICODERM (NICOTINE) PATCH T-DERMAL SCH (21:00)
--- NOTE | 2017-12-03 00:14 | EKG ---
Date Performed: 12/02/2017 Time Performed: 04:25:28 PTAGE: 62 years EKG: Sinus rhythm WITH SINUS ARRHYTHMIA NORMAL ECG PREVIOUS TRACING : 12/01/2017 20.59 Since the previous tracing, no significant change noted DOCTOR: Billy Arcos Interpretating Date/Time 12/03/2017 00:13:57
--- NOTE | 2017-12-03 00:25 | EKG ---
Date Performed: 12/01/2017 Time Performed: 20:59:02 PTAGE: 62 years EKG: Sinus rhythm NORMAL ECG PREVIOUS TRACING : 12/01/2017 12.51 Since the previous tracing, no significant change noted DOCTOR: Billy Arcos Interpretating Date/Time 12/03/2017 00:25:14
[2017-12-03 00:29] VITALS: BP 143/93; PULSE 81; RESP 14; TEMP 97.6; O2SAT 98
--- NOTE | 2017-12-03 00:44 | EKG ---
Date Performed: 12/01/2017 Time Performed: 12:51:51 PTAGE: 62 years EKG: Sinus rhythm WITH MARKED SINUS ARRHYTHMIA BORDERLINE ECG PREVIOUS TRACING : 07/02/2006 14.40 Since the previous tracing, no significant change noted DOCTOR: Billy Arcos Interpretating Date/Time 12/03/2017 00:43:48
[2017-12-03 06:15] VITALS: BP 171/72; PULSE 76; RESP 16; TEMP 98.4; O2SAT 96
[2017-12-03] MEDS: SODIUM CHLOR 0.45% 1000 ML INJ 1,000 ML IV SCH (06:21)
[2017-12-03 07:28] VITALS: BP 142/70; PULSE 72; RESP 14; TEMP 98; O2SAT 96
[2017-12-03] MEDS: NICOTINE 21 MG/24 HR PATCH TD SCH (09:00)
--- NOTE | 2017-12-03 09:15 | HHI.FPPN ---
Subjective Remarks No acute events overnight. Patient denies dizziness, CP, SOB. Her wrist pain still comes and goes with certain positions. Otherwise no complaints and she desires to go home. (Heath James MD R1) Objective Vitals Vital Signs Date Time Temp Pulse Resp B/P (MAP) Pulse Ox O2 Delivery O2 Flow Rate FiO2 12/03/17 07:28 98.0 72 14 142/70 (94) 96 12/03/17 06:15 98.4 76 16 171/72 (105) 96 12/03/17 00:29 97.6 81 14 143/93 (110) 98 12/02/17 15:35 75 12/02/17 12:28 98.2 86 18 186/72 (110) 96 I/O 12/02/17 12/02/17 12/02/17 12/03/17 12/03/17 12/03/17 07:00 15:00 23:00 07:00 15:00 23:00 Intake Total 240 ml Balance 240 ml Intake Oral 240 ml # Voids 1 3 2 (Heath James MD R1) Result Diagram: 12/02/17 0630 12/02/17 0630 Objective Remarks GENERAL: Well-nourished, well-developed patient. No acute distress. SKIN: Warm and dry. No rash. EYES: No scleral icterus. No injection or drainage. PERRLA. EOMI. HENT: Normocephalic. Atraumatic. MMM. NECK: No visible JVD or lymphadenopathy. CARDIOVASCULAR: Warm and well perfused. RRR with no murmurs RESPIRATORY: Normal respiratory effort. CTAB with no wheezes GASTROINTESTINAL: Abdomen nondistended, nontender MUSCULOSKELETAL: Strength grossly WNL. Tinel sign + on R wrist BACK: Without obvious deformity. NEURO/PSYCH: Cranial nerves grossly intact. Sensation and strength grossly intact throughout. (Heath James MD R1) A/P Assessment and Plan 62-year-old female presents with nonspecific neurologic symptoms. Found to likely have a TIA versus atypical migraine versus cervical neck radiculopathy versus carpal tunnel. She has had no progression of her blurry vision or right hand numbness. Discharge Planning Likely discharge today (Heath James MD R1) Attending Attestation As noted, she is essentially asymptomatic today and would like to go home. Her echocardiogram has been done. I agree with the physical findings as documented in the resident note, and agree with the plan as well. She is strongly encouraged to quit smoking and to keep trying if she is unsuccessful. She understands that she is being started on medication for her blood pressure, her cholesterol, and that she is to take an aspirin every day. (Jennifer Grimm MD) Problem List: (1) Blurry vision, bilateral ICD Codes: H53.8 - Other visual disturbances Status: Acute Plan: Acute bilateral vision loss, currently resolved BP normal, carotid normal History of headache over last few days, no headache now, possible migraine aura Less Likely temporal arteritis given a normal ESR. See TIA plan (2) TIA (transient ischemic attack) ICD Codes: G45.9 - Transient cerebral ischemic attack, unspecified Status: Acute Plan: paroxysmal right arm numbness since AM, blurry vision since AM, both improving Transient symptoms consistent with TIA versus cervical radiculopathy versus carpal tunnel. Start aspirin 325 daily, will transition to 81mg daily on DC Start Lovenox 40 daily Start atorvastatin 40 at bedtime ACS workup negative Follow-up echo Consult PT, OT Neurology recommending statin, ASA with outpatient follow up Head CT: No hemorrhage. Focal 9 mm area of decreased attenuation in white matter of right frontal lobe, unclear significance. May be subacute or remote infarction. Mass lesion is less likely. Brain MRI: Chronic white matter ischemic changes. No mass or abnormal enhancement Neck MRA: 50% stenosis of left subclavian. Right carotid system is patent. Left vertebral may be occluded proximally (similar to CT neck in 2015) Head MRA: Anatomical variant of the [place] of [place]. Right vertebral dominant. No aneurysms. (3) Numbness of right hand ICD Codes: R20.0 - Anesthesia of skin Status: Acute Plan: Paroxysmal, can be illicited on PE no hx of carpal tunnel, 1st episode Nerve compression radiculopathy vs Carpal tunnel Follow-up as outpatient with cervical MRI vs EMG. Cervical spine CT: Degenerative disc disease at C5-C6, encroaching on intervertebral space, mild spinal stenosis but no cord compromise. - Imaging discussed with radiology, it is possible that stenosis is causing nerve impingement and radiculopathy (4) Elevated blood pressure reading without diagnosis of hypertension ICD Codes: R03.0 - Elevated blood-pressure reading, without diagnosis of hypertension Plan: Patient noted to have multiple elevated BP (ranging from 140's-180's systolic, 70's-90's diastolic) No known diagnosis of HTN, not on any antihypertensive agents Starting Amlodipine 5mg daily Will need to follow up with PCP (5) SIRS (systemic inflammatory response syndrome) ICD Codes: R65.10 - Systemic inflammatory response syndrome (SIRS) of non- infectious origin without acute organ dysfunction Status: Acute Plan: Resolved. We will follow-up urine analysis and cultures. Chest x-rays just showed minimal atelectasis in the right lung base. (6) COPD (chronic obstructive pulmonary disease) ICD Codes: J44.9 - Chronic obstructive pulmonary disease, unspecified Status: Chronic Plan: Albuterol as needed (7) FEN/PPX Status: Acute Plan: Fluids: DC fluids on 12/03 Electrolytes: BMP normal, follow-up in a.m. Nutrition: Heart healthy diet GI prophylaxis: Not indicated DVT prophylaxis: Lovenox [address] Jennifer Grimm. (Heath James MD R1) Heath James MD R1 Dec 03, 2017 09:15 Jennifer Grimm MD Dec 03, 2017 12:06
[2017-12-03] MEDS ORDERED: amLODIPine BESYLATE 5 MG TAB PO SCH (09:30)
[2017-12-03] MEDS: ASPIRIN 325 MG TAB PO SCH (09:50)
[2017-12-03] MEDS: ATORVASTATIN 40 MG TAB PO SCH (09:51)
[2017-12-03] MEDS: SODIUM CHLORIDE 0.9% FLUSH 10 ML FLUSH IV FLUSH SCH (09:51)
--- NOTE | 2017-12-03 10:49 | HHI.DS ---
Discharge Summary Admission Date Dec 01, 2017 at 13:34 Discharge Date: Dec 03, 2017 Admitting Diagnosis Blurred vision, right hand numbness (1) Blurry vision, bilateral Plan: ICD Codes: H53.8 - Other visual disturbances Status: Acute (2) TIA (transient ischemic attack) ICD Codes: G45.9 - Transient cerebral ischemic attack, unspecified Status: Acute (3) Numbness of right hand ICD Codes: R20.0 - Anesthesia of skin Status: Acute (4) Elevated blood pressure reading without diagnosis of hypertension ICD Codes: R03.0 - Elevated blood-pressure reading, without diagnosis of hypertension (5) SIRS (systemic inflammatory response syndrome) Plan: ICD Codes: R65.10 - Systemic inflammatory response syndrome (SIRS) of non- infectious origin without acute organ dysfunction Status: Acute (6) COPD (chronic obstructive pulmonary disease) ICD Codes: J44.9 - Chronic obstructive pulmonary disease, unspecified Status: Chronic Brief History 62 y/o F, presents with right hand numbness and vision change today. She states she hasn't been feeling good for the last couple days but the numbness started this morning. She had felt out of sorts like she was coming down with a cold or something. She felt more fatigued and congested. Right when she woke up this morning she noticed her vision didn't look right. She tried to have a cup of coffee to see if it would get better, but then she realized she had to go the ED. Since she got to the ED she thinks her vision has improved a little bit. The right hand numbness has concerned her more than the vision, this also was noticeable right when she woke up. Her right hand numbness has been coming and going over the day. She denies any hx of carpal tunnel. Pt denies any hx of stroke. She is walking normally but feels "off balance". She has been using her arthritis cane to walk today. Denies any arm or hand weakness. She has had a headache over the last few days, 4-5/10 pain. She took 3 aspirin for the headache along with caffeine and that helped. She does not have a headache right now. She does not take her BP regularly. CBC/BMP: 12/02/17 0630 12/02/17 0630 Significant Findings Laboratory Tests Test 12/01/17 11:45 12/01/17 13:40 12/01/17 20:42 12/01/17 21:49 White Blood Count 16.1 TH/MM3 (4.0-11.0) Hemoglobin 16.7 GM/DL (11.6-15.3) Hematocrit 47.7 % (35.0-46.0) Neutrophils # (Auto) 10.3 TH/MM3 (1.8-7.7) Prothrombin Time 9.7 SEC (9.8-11.6) Chloride Level 108 MEQ/L (98-107) Estimat Glomerular Filtration Rate 82 ML/MIN (>89) Troponin I LESS THAN 0.02 NG/ML LESS THAN 0.02 NG/ML C-Reactive Protein 0.58 MG/DL (0.00-0.30) Test 12/02/17 00:53 12/02/17 06:30 12/02/17 11:48 Troponin I LESS THAN 0.02 NG/ML Hemoglobin 15.8 GM/DL (11.6-15.3) Hematocrit 46.3 % (35.0-46.0) Albumin 3.3 GM/DL (3.4-5.0) Aspartate Amino Transf (AST/SGOT) 14 U/L (15-37) Triglycerides Level 216 MG/DL (42-150) Cholesterol Level 231 MG/DL (120-200) LDL Cholesterol 121 MG/DL (0-99) HDL Cholesterol 67.1 MG/DL (40.0-60.0) Urine Mucus FEW /lpf (OCC) PE at Discharge GENERAL: Well-nourished, well-developed patient. No acute distress. SKIN: Warm and dry. No rash. EYES: No scleral icterus. No injection or drainage. PERRLA. EOMI. HENT: Normocephalic. Atraumatic. MMM. NECK: No visible JVD or lymphadenopathy. CARDIOVASCULAR: Warm and well perfused. RRR with no murmurs RESPIRATORY: Normal respiratory effort. CTAB with no wheezes GASTROINTESTINAL: Abdomen nondistended, nontender MUSCULOSKELETAL: Strength grossly WNL. Tinel sign + on R wrist BACK: Without obvious deformity. NEURO/PSYCH: Cranial nerves grossly intact. Sensation and strength grossly intact throughout. Hospital Course Patient was admitted for TIA workup after presented with transient blurry vision and R hand numbness. Multiple imaging studies (including Head MRA, cervical spine CT, brain MRI, head CT, neck MRA) were negative for acute stroke but did show left vertebral arterial occlusion vs diminutive artery. Cervical spine CT showed degenerative disc disease at C5-C6, encroaching on intervertebral space, mild spinal stenosis but no cord compromise. Imaging was discussed with radiology, it is possible that stenosis is causing nerve impingement and radiculopathy. R hand numbness was reproducible on physical exam which may imply an underlying carpal tunnel syndrome. Patient initially met SIRS criteria with leukocytosis and tachycardia, but it resolved shortly after admission. UA was negative and CXR showed minimal atelectasis in the right lung base. ESR was ordered to rule out temporal arteritis - ESR was normal. ACS workup was negative. Patient was started on ASA, Atorvastatin and neurology was consulted. Neurology agreed with aspirin, atorvastatin with follow -up as outpatient with cervical MRI vs EMG. Echocardiogram was performed (but not read) at time of discharge. Patient was noted to be hypertensive during the hospitalization so she was started on Amlodipine 5mg and told to follow up with PCP. Both patient and primary team felt patient was safe for discharge on 12/03 as her symptoms had resolved. Pt Condition on Discharge: Good Discharge Instructions Follow up Referrals: Neurology - 2 Weeks with Martell Villasenor MD PCP Follow-up - 2 Weeks New Medications: Aspirin (Aspirin) 81 Mg Chew 81 MG CHEW DAILY, #30 TAB 0 Refills Amlodipine (Norvasc) 5 Mg Tab 5 MG PO DAILY, #30 TAB Atorvastatin (Atorvastatin) 40 Mg Tab 40 MG PO DAILY, #30 TAB 1 Refill Heath James MD R1 Dec 03, 2017 10:49
[2017-12-03] MEDS ORDERED: AMLO5 PO (10:51)
[2017-12-03] MEDS ORDERED: ATOR40TA16 PO (10:51)
[2017-12-03] MEDS ORDERED: ASPI-516 CHEW (10:51)
--- NOTE | 2017-12-03 10:55 | HHI.DCPOC ---
Discharge Care Plan Diagnosis: (1) Elevated blood pressure reading without diagnosis of hypertension (2) Dyslipidemia (3) TIA (transient ischemic attack) (4) Blurred vision Goals to Promote Your Health * To prevent worsening of your condition and complications * To maintain your health at the optimal level Directions to Meet Your Goals Take your medications as prescribed Follow your dietary instruction Follow activity as directed Keep your appointments as scheduled Take your immunizations and boosters as scheduled If your symptoms worsen call your PCP, if no PCP go to Urgent Care Center or Emergency Room Smoking is Dangerous to Your Health. Avoid second hand smoke Call the 24-hour hour crisis hotline for domestic abuse at Heath James MD R1 Dec 03, 2017 10:55
--- NOTE | 2017-12-03 12:25 | ECHRPT ---
Indication: CORONARY ATHEROSCLEROSIS CONCLUSIONS Normal left ventricular size. Wall thickness is measured at the upper limits of normal. The left ventricular systolic function is normal with an estimated ejection fraction in the range of 55-60%. No regional wall motion abnormalities are present. There is trace tricuspid valve regurgitation. [id number] mitral valve regurgitation. BP: / HR: Rhythm: Sinus MEASUREMENTS (Male / Female) Normal Values Technical Quality:Fair 2D ECHO LV Diastolic Diameter PLAX 4.1 cm 4.2 - 5.9 / 3.9 - 5.3 cm LV Systolic Diameter PLAX 2.8 cm IVS Diastolic Thickness 0.7 cm 0.6 - 1.0 / 0.6 - 0.9 cm LVPW Diastolic Thickness 0.7 cm 0.6 - 1.0 / 0.6 - 0.9 cm LV Relative Wall Thickness 0.4 RV Internal Dim ED PLAX 2.2 cm LVOT Diameter 1.7 cm Aortic Root Diameter 2.5 cm LA Systolic Diameter LX 2.5 cm 3.0 - 4.0 / 2.7 - 3.8 cm M-MODE AV Cusp Separation MM 1.6 cm DOPPLER AV Peak Velocity 88.2 cm/s AV Peak Gradient 3.1 mmHg AV Mean Gradient 2.0 mmHg AV Velocity Time Integral 19.5 cm LVOT Peak Velocity 73.7 cm/s LVOT Peak Gradient 2.2 mmHg LVOT Velocity Time Integral 15.8 cm AV Area Cont Eq vti 1.8 cm AV Area Cont Eq pk 1.9 cm Mitral E Point Velocity 56.3 cm/s Mitral A Point Velocity 57.8 cm/s Mitral E to A Ratio 1.0 LV E' Lateral Velocity 6.2 cm/s Mitral E to LV E' Lateral Ratio 9.0 LV E' Septal Velocity 7.0 cm/s Mitral E to LV E' Septal Ratio 8.0 PV Peak Velocity 58.7 cm/s PV Peak Gradient 1.4 mmHg FINDINGS LEFT VENTRICLE Normal left ventricular size. Wall thickness is measured at the upper limits of normal. The left ventricular systolic function is normal with an estimated ejection fraction in the range of 55-60%. No regional wall motion abnormalities are present. RIGHT VENTRICLE Normal right ventricular size and systolic function. LEFT ATRIUM The left atrial size is normal. RIGHT ATRIUM The right atrial size is normal. ATRIAL SEPTUM No atrial level shunt is demonstrated by color flow Doppler interrogation. AORTA The aortic root and proximal ascending aorta are not well visualized. MITRAL VALVE [id number] mitral valve regurgitation. AORTIC VALVE Trileaflet aortic valve. No aortic valve stenosis or regurgitation. TRICUSPID VALVE There is trace tricuspid valve regurgitation. PULMONARY VALVE No pulmonary valve regurgitation or stenosis. VESSELS The inferior vena cava is normal in size. PERICARDIUM No pericardial effusion. Johan Vicente MD (Electronically Signed) Final Date:03 December 2017 12:24
[2017-12-03 16:44] LABS: HEMOGLOBIN A1C 5.4 % (4.3-6.0)
== END 2017-12-03 12:15 | disposition home or self-care (01) ==
LOC: NEPC 11:26 → NEDA 13:34 → NEPHCDU 17:49
PROVIDERS: ADMIT Family Medicine; ATTEND Family Medicine
DX: G45.9 Transient cerebral ischemic attack, unspecified (principal); R65.10 Systemic inflammatory response syndrome (SIRS) of non-infectious origin without acute organ dysfunction; J44.9 Chronic obstructive pulmonary disease, unspecified; M50.322 Other cervical disc degeneration at C5-C6 level; I49.9 Cardiac arrhythmia, unspecified; M48.02 Spinal stenosis, cervical region; K21.9 Gastro-esophageal reflux disease without esophagitis; R00.0 Tachycardia, unspecified; F41.9 Anxiety disorder, unspecified; H54.3 Unqualified visual loss, both eyes; M17.11 Unilateral primary osteoarthritis, right knee; F17.200 Nicotine dependence, unspecified, uncomplicated; Z79.82 Long term (current) use of aspirin
CPT/HCPCS: 70450; 70544; 70548; 70553; 71046; 72125; 80048; 80053; 80061; 80307; 81001; 82550; 83036; 83690; 83735; 84484; 85025; 85610; 85652; 85730; 86140; 93005; 93306; 96360; 96361; 96372; 97161; 97166; 99285; A9579; G0378; G8987; G8988; G8989; J1650